=== PATIENT | male | born 2000 | race Caucasian/White ===

== ENCOUNTER 2023-04-12 22:16 | Emergency (ER) | payer OTHER ==
[2023-04-12 22:26] VITALS: BP 111/75; PULSE 80; RESP 20; TEMP 98.5; BMI 27.8
== END 2023-04-13 00:05 | disposition home or self-care (01) ==
LOC: JER 22:16
DX: R50.9 Fever, unspecified (principal); R05.9 Cough, unspecified; R51.9 Headache, unspecified; M79.10 Myalgia, unspecified site; R42 Dizziness and giddiness; J10.1 Influenza due to other identified influenza virus with other respiratory manifestations; R53.83 Other fatigue; Z20.822 Contact with and (suspected) exposure to COVID-19
CPT/HCPCS: 0241U-QW; 99283-25

== ENCOUNTER 2024-10-31 09:47 | Emergency (ER) | payer OTHER ==
[2024-10-31 09:54] VITALS: BP 122/66; PULSE 85; RESP 18; TEMP 97.2; BMI 29.8
[2024-10-31] MEDS ORDERED: AZITHROMYCIN 500 MG TABLET ONE (11:00)
[2024-10-31] MEDS ORDERED: DOXYCYCLINE HYCLATE 100 MG TABLET PO ONE (11:24)
[2024-10-31] MEDS: DOXYCYCLINE HYCLATE 100 MG CAPSULE PO ONE (11:35)
[2024-10-31] MEDS: AZITHROMYCIN 500 MG TABLET PO ONE (11:37)
[2024-10-31 11:47] LABS: URINE APPEARANCE CLEAR; URINE BILIRUBIN NEGATIVE (NEGATIVE); URINE COLOR YELLOW; URINE GLUCOSE (UA) NEGATIVE (NEGATIVE); URINE KETONE TRACE (NEGATIVE); URINE LEUK ESTERASE NEGATIVE (NEGATIVE); URINE NITRITE NEGATIVE (NEGATIVE); URINE PROTEIN NEGATIVE (NEGATIVE); URINE UROBILINOGEN 1.0 mg/dL (0.2-1.0)
[2024-10-31 13:45] LABS: HCV DIAGNOSTIC IN-HOUSE W/RFLX NON-REACTIVE (NONREACTIVE); HIV INTERPRETATION NEGATIVE (NEGATIVE)
== END 2024-10-31 12:12 | disposition home or self-care (01) ==
LOC: JERFT 09:47
DX: N48.89 Other specified disorders of penis (principal)
CPT/HCPCS: 36415; 81003; 86803; 87086; 87389; 87491; 87529; 87591; 99284-25